=== PATIENT | male | born 1980 | race Caucasian/White ===

== ENCOUNTER 2023-01-07 16:52 | Outpatient (OUT) | payer BC, SELFPAY ==
--- NOTE | 2023-01-07 17:00 | XR_ITS ---
The [address] [address] Patient Name: YAMIL KAUR MRN: [id number] date: 1980 Sex: M Assigned Patient Location: [facility] Current Patient Location: RAD Accession/Order Number: [id number] Exam Date: 01/07/2023 17:00 Report Date: 01/07/2023 17:36 At the request of: KIRIT ROSENBERG Procedure: XR chest 2V EXAM: XR chest 2V HISTORY: Acute cough R05.1, Shortness of breath R06.02 for 2 weeks. COMPARISON: None. TECHNIQUE: Upright PA and lateral chest x-ray FINDINGS: The heart is not enlarged and the vasculature is not distended. Patchy interstitial infiltrate is seen in the right midlung. No acute infiltrate, effusion or pneumothorax is otherwise identified. The osseous structures are grossly intact. XR/XR chest 2V IMPRESSION: A patchy infiltrate is seen in the right mid lung. There is no other evidence of a focal infiltrate or cardiac decompensation. Direct comparison with a previous study would be helpful in determining the chronicity of these findings. Electronically authenticated by: BRANDON BURNS Date: 01/07/2023 17:36
== END 2023-01-07 16:53 | disposition home or self-care (01) ==
PROVIDERS: PCP Family Medicine; Visit Provider Nurse Practitioner Family
DX: R05.9 Cough, unspecified (principal); R06.02 Shortness of breath
CPT/HCPCS: 71046